=== PATIENT | female | born 1925 | race Caucasian/White ===

== ENCOUNTER → 2016-05-30 | Outpatient (CLI) | payer OTHER, BC ==
[~2016-05-30] MED LIST: ACET-1311 PO; ACET650S10 PR; ALBU0.08 INH; ALBU1AER9 INH; BECL0.3A INH; BRIM0.159 OPB; CARB0.5D28 OP; CHOL100010 PO; CLON0.1T12 PO; DEXTSYP29 PO; DXY100 PO; IPRASOL4 INH; LACT1TAB4 PO; LATA0.009 OPB; LEVO100T PO; LEVO50TA6 PO; LISI20TA3 PO; METO50TA7 PO; MULT-506 PO; ONDA4TAB10 SL
== END | disposition home or self-care (01) ==
LOC: C.LABFOXAN 17:01
PROVIDERS: ATTEND Internal Medicine
DX: B96.89 Other specified bacterial agents as the cause of diseases classified elsewhere (principal)